=== PATIENT | male | born 1965 | race Two or more races ===

== ENCOUNTER 2017-09-18 10:15 | Emergency (ER) | payer OTHER ==
[~2017-09-18] VITALS: Ht 167.6 cm; Wt 81.6 kg
[~2017-09-18 10:15] MED LIST: AML5T PO; SIMV-13 PO
[2017-09-18] MEDS ORDERED: LIDOCAINE 1% HCL (LOCAL ANESTH.) INJ 20ML MDV IJ ONE (11:15)
[2017-09-18 11:37] VITALS: BP 128/80
== END 2017-09-18 12:25 | disposition home or self-care (01) ==
LOC: ER 10:15
DX: S01.01XA Laceration without foreign body of scalp, initial encounter (principal); E78.5 Hyperlipidemia, unspecified; I10 Essential (primary) hypertension; W22.8XXA Striking against or struck by other objects, initial encounter; Y93.89 Activity, other specified; Y99.8 Other external cause status; Y92.89 Other specified places as the place of occurrence of the external cause
CPT/HCPCS: 12001; 99283; J2001

== ENCOUNTER 2023-07-05 21:49 | Emergency (ER) | payer OTHER ==
[~2023-07-05] VITALS: Ht 167.6 cm; Wt 83.2 kg
[~2023-07-05 21:49] MED LIST changes: -SIMV-13 PO; +SIMV40TA18 PO
[2023-07-05] MEDS ORDERED: ONDANSETRON HCL 4 MG/2 ML VIAL ONE (22:22)
[2023-07-05] MEDS ORDERED: MORPHINE SULFATE 4 MG/ML SYR/VIAL ONE (22:22)
[2023-07-05] MEDS ORDERED: MORPHINE SULFATE 4 MG/ML SYR/VIAL IM ONE (22:30)
[2023-07-05] MEDS ORDERED: ONDANSETRON HCL 4 MG/2 ML VIAL IM ONE (22:30)
[2023-07-06] MEDS ORDERED: PROPOFOL 100 ML IV ONE (00:23)
[2023-07-06] MEDS ORDERED: PROPOFOL 10 MG/ML 20 ML IV ONE (00:30)
[2023-07-06] MEDS ORDERED: HYDROcodone-ACET 10/325MG TAB PO ONE (02:00)
[2023-07-06] MEDS ORDERED: HYDR-4798 PO (02:05)
[2023-07-06 02:30] VITALS: BP 118/72; PULSE 63; RESP 13; O2SAT 93
== END 2023-07-06 02:40 | disposition home or self-care (01) ==
LOC: ER 21:49
DX: S43.005A Unspecified dislocation of left shoulder joint, initial encounter (principal); E78.5 Hyperlipidemia, unspecified; I10 Essential (primary) hypertension; W03.XXXA Other fall on same level due to collision with another person, initial encounter; Y93.89 Activity, other specified; Y92.89 Other specified places as the place of occurrence of the external cause; Y99.8 Other external cause status
CPT/HCPCS: 23650; 73020; 73030; 73060; 96372; 99285; J2270; J2405; J2704

== ENCOUNTER 2024-07-29 09:01 | Emergency (ER) | payer OTHER ==
[~2024-07-29] VITALS: Ht 167.6 cm; Wt 82.0 kg
[~2024-07-29 09:01] MED LIST changes: +HYDR-4798 PO
--- NOTE | 2024-07-29 09:56 | ECG ---
[facility] Test Date: 2024-07-29 Test Time: 09:13:38 Pat Name: ROSNAA ROGEL Department: ER Room: Gender: M Routing Machine Operator: JOSELUIS : 1965 Requested By: EMERGENCY EMERGENCY Order Number: [id number] Reading MD: Measurements Intervals [place] Rate: 47 P: 42 UT: 58 QRS: -4 QRSD: 101 T: 55 QT: 432 QTc: 382 Interpretive Statements Sinus bradycardia Short UT interval Baseline wander in lead(s) V1 Please click the below link to view image of tracing.
[2024-07-29 09:57] VITALS: O2SAT 93
--- NOTE | 2024-07-29 11:33 | ED.PDOC ---
HPI (NEURO) HPI Comments 59-year-old male presents with a chief complaint of dizziness x onset Monday (07/26/2024) with associated nausea. Patient states that he has been feeling dizzy since Monday and that it has been progressively getting worse. Patient mentions that the dizziness feels like he is on a ship, rather than the room spinning. Patient mentions that he had a near syncopal episode this morning and fell backwards in the shower and hit his head. Patient denies any headache at this time, and just reports having some neck tension. Patient denies LOC and is A/Ox4 at this time. No other symptoms or modifying factors present at this time. Chief Complaint: Dizziness Time Seen by MD: 11:09 Primary Care Provider: WILLY RODRIGUEZ Reviewed Notes: Medications, Allergies Information Source: Patient Mode of Arrival: Ambulatory Severity: Moderate Dizziness/Weakness Severity: Unable to do activities Headache Severity: None Timing: Days Duration: Since onset Prehospital treatment: None Onset: With light exertion Circumstances: Spontaneous Symptoms: Imbalance Past Medical History PAST MEDICAL HISTORY: High Lipids, HTN Surgical History: Denies all surgeries Family History Family History: No family hx of DM, No family hx of HTN Social History Smoker: Non-Smoker Alcohol: Occasionally Drugs: Denies Drug Use Lives In: Home Constitutional: denies: chills, diaphoresis, fatigue, fever, malaise, sweats, weakness, others EENTM: denies: blurred vision, double vision, ear bleeding, ear discharge, ear drainage, ear pain, ear ringing, eye pain, eye redness, hearing loss, mouth pa in, mouth swelling, nasal discharge, nose bleeding, nose congestion, nose pain, photophobia, tearing, throat pain, throat swelling, voice changes, others Respiratory: denies: cough, hemoptysis, orthopnea, SOB at rest, shortness of breath, SOB with excertion, stridor, wheezing, others Cardiovascular: denies: chest pain, dizzy spells, diaphoresis, Dyspnea on exertion, edema, irregular heart beat, left arm pain, lightheadedness, palpitations, PND, syncope, others Gastrointestinal: reports: nausea; denies: abdomen distended, abdominal pain, blood streaked bowels, constipated, diarrhea, dysphagia, difficulty swallowing, hematemesis, melena, poor appetite, poor fluid intake, rectal bleeding, rectal pain, vomiting, others Genitourinary: denies: burning, dysuria, flank pain, frequency, hematuria, incontinence, penile discharge, penile sore, pain, testicle pain, testicle swelling, urgency, others Neurological: reports: dizziness; denies: fainting, headache, left sided numbness, left sided weakness, numbness, paresthesia, pre-existing deficit, right sided numbness, right sided weakness, seizure, speech problems, tingling, tremors, weakness, others Musculoskeletal: denies: back pain, gout, joint pain, joint swelling, muscle p ain, muscle stiffness, neck pain, others Integumetry: denies: bruises, change in color, change in hair/nails, dryness, laceration, lesions, lumps, rash, wounds, others Allergic/Immunocompromised: denies: Difficulty Healing, Frequent Infections, Hives, Itching, others Hematologic/Lymphatic: denies: anemia, blood clots, easy bleeding, easy bruising, swollen glands, others Endocrine: denies: excessive hunger, excessive sweating, excessive thirst, excessive urination, flushing, intolerance to cold, intolerance to heat, unexplained weight gain, unexplained weight loss, others Psychiatric: denies: anxiety, bipolar disorder, depression, hopeless, panic disorder, schizophrenia, sleepless, suicidal, others All Other Systems: Reviewed and Negative Physical Exam General Appearance: No Apparent Distress HEENT: PERRL/EOMI, Other (Occipital soft tissue tenderness. No bruising or crepitus.) Neck: Full Range of Motion, Normal Inspection, Tender Lateral (Right lateral and paraspinal neck tenderness.) Respiratory: Lungs Clear, No Accessory Muscle Use, No Respiratory Distress, Normal Breath Sounds Cardiovascular: Bradycardia, No Edema, No JVD Breast Exam: Deferred Gastrointestinal: Non Tender, Soft Genitalia: Deferred Pelvic: Deferred Rectal: Deferred Extremities: Normal inspection, Normal range of motion, Non-tender, No pedal edema Neurologic: Alert (Oriented x4), Normal Affect, Normal Mood, Other (Moves all extremities with adequate strength and tone. No gross focal deficit.) Cerebellar Function: NOT DONE Reflexes: NOT DONE Skin: Dry, Normal Color, Warm Lymphatic: NOT DONE EKG EKG : Comments Sinus bradycardia, rate 45, normal intervals, normal axis, normal QRS, no ST/T changes. Was a procedure done? Was a procedure done?: No Differential Diagnosis (SZ) Seizure: CVA/TIA CVA: Hypoglycemia General Weakness: Dehydration, Dysrhythmia, Electrolyte imbalance, Hypotension, Hypovolemia Headache: Closed Head Injury, Intracerebral Hemorrhage, Subarachnoid Hemorrhage, Subdural Hemorrhage, Other (Skull fracture, C-spine fracture, among others) X-Ray, Labs, Meds, VS Vital Signs Date Time Temp Pulse Resp B/P (MAP) Pulse Ox O2 Delivery O2 Flow Rate FiO2 07/29/24 17:04 97.9 66 15 137/86 (103) 93 97.9 07/29/24 16:39 61 07/29/24 16:20 51 15 132/82 (99) 96 07/29/24 15:35 49 18 122/74 (90) 96 07/29/24 15:31 45 135/75 50 125/83 55 137/86 07/29/24 14:00 50 16 136/79 (98) 96 07/29/24 13:38 45 07/29/24 12:15 51 20 115/65 (82) 92 07/29/24 12:00 46 07/29/24 10:56 44 20 144/79 (100) 96 07/29/24 09:57 93 Room Air* 0 21 07/29/24 09:52 98.7 49 18 167/84 (111) 96 98.7 07/29/24 09:13 47 07/29/24 09:05 97.8 47 18 187/101 (129) 96 170/78 (108) Lab Test 07/29/24 13:51 07/29/24 12:51 07/29/24 12:28 07/29/24 09:56 Range/Units Troponin I High Sensitivity 14 15 </=54 ng/L White Blood Count 8.7 4.4-10.8 10^3/uL Red Blood Count 4.60 4.5-5.90 10^6/uL Hemoglobin 14.5 13.5-17.5 g/dL Hematocrit 43.6 41.0-53.0 % Mean Corpuscular Volume 94.7 80.0-100.0 fL Mean Corpuscular Hemoglobin 31.5 28.0-32.0 pg Mean Corpuscular Hemoglobin Concent 33.3 32.0-36.0 g/dL Red Cell Distribution Width 13.1 11.8-14.3 % Platelet Count 268 140-450 10^3/uL Mean Platelet Volume 7.7 6.9-10.8 fL Neutrophils (%) (Auto) 72.3 37.0-80.0 % Lymphocytes (%) (Auto) 19.6 10.0-50.0 % Monocytes (%) (Auto) 7.2 0.0-12.0 % Eosinophils (%) (Auto) 0.6 0.0-7.0 % Basophils (%) (Auto) 0.3 0.0-2.0 % Neutrophils # (Auto) 6.3 1.6-8.6 10 ^3/uL Lymphocytes # (Auto) 1.7 0.4-5.4 10 ^3/uL Monocytes # (Auto) 0.6 0-1.3 10 ^3/uL Eosinophils # (Auto) 0.1 0-0.8 10 ^3/uL Basophils # (Auto) 0 0-0.2 10 ^3/uL Nucleated Red Blood Cells 0.0 % Sodium Level 140 136-145 mmol/L Potassium Level 3.8 3.5-5.1 mmol/L Chloride Level 105 98-107 mmol/L Carbon Dioxide Level 28 20-31 mmol/L Anion Gap 7 5-15 Blood Urea Nitrogen 10 9-23 mg/dL Creatinine 0.91 0.700-1.30 mg/dL Glomerular Filtration Rate Calc 96 >90 mL/min BUN/Creatinine Ratio 11.0 10.0-20.0 Serum Glucose 105 74-106 mg/dL Calcium Level 10.3 8.7-10.4 mg/dL B-Type Natriuretic Peptide 23.14 0-100 pg/mL Thyroid Stimulating Hormone (TSH) 1.12 0.55-4.78 uIU/mL Urine Color Colorless Yellow Urine Clarity Clear Clear Urine pH 6.0 5.0-9.0 Urine Specific [place] 1.006 1.001-1.035 Urine Protein Negative Negative Urine Ketones Negative Negative Urine Blood Negative Negative /uL Urine Nitrite Negative Negative Urine Bilirubin Negative Negative Urine Urobilinogen Normal Negative mg/dL Urine Leukocyte Esterase Negative Negative /uL Urine RBC None seen 0 - 3 /hpf Urine WBC <1 0 - 3 /hpf Urine Squamous Epithelial Cells None seen <5 /hpf Urine Bacteria None seen None Seen /hpf Urine Glucose Normal Normal mg/dL POC Glucose 138 H 70-106 mg/dl Test 07/29/24 09:13 Range/Units POC Glucose 117 H 70-106 mg/dl Current Medications Medications (Trade) Dose Ordered Sig/Kirstin Route Start Time Stop Time Status Last Admin Sodium Chloride 1,000 ml @ 1,000 mls/hr Q1H ONCE IV 07/29/24 12:00 07/29/24 12:59 DC 07/29/24 12:25 Ondansetron HCl (Zofran) 4 mg ONCE ONCE IV 07/29/24 12:00 07/29/24 12:01 DC 07/29/24 12:22 Meclizine HCl (Antivert Tablet) 50 mg ONCE ONCE PO 07/29/24 12:00 07/29/24 12:01 DC 07/29/24 12:24 Acetaminophen/ Hydrocodone Bitart ([place] 5/325MG Tab) 1 tab ONCE ONCE PO 07/29/24 12:00 07/29/24 12:01 DC 07/29/24 12:20 Meclizine HCl (Antivert Tablet) 25 mg ONCE ONCE PO 07/29/24 16:45 07/29/24 16:50 DC 07/29/24 16:57 PROCEDURE(s): HWOCT - HEAD WITHOUT CONTRAST REASON: dizzy, head injury ORDER NUMBER(s): [id number], ACCESSION NUMBER(s): [id number] EXAM: CT HEAD WITHOUT CONTRAST HISTORY: dizzy, head injury COMPARISON: None TECHNIQUE: Axial images of the head were obtained and reformatted in coronal and sagittal planes. All CT scans at this medical facility are performed using dose modulation techniques as appropriate to a performed exam including the following: Automated exposure control was utilized; adjustment of the MA and/or KV according to p atient size; and use of iterative reconstruction technique. CT Dose: CTDI volume is 63 mGy. Dose-length product is 1125 mGy*cm FINDINGS: There is no evidence of acute intracranial hemorrhage, mass, mass effect midline shift. There is no hydrocephalus or extra-axial fluid collection. Kaur-white matter differentiation is maintained. The visualized paranasal sinuses and mastoid air cells are clear. The calvarium is intact. IMPRESSION: 1. No acute intracranial process. HS:Y EDURE(s): CS2 - CERVICAL WITHOUT CONTRAST REASON: dizzy, fall with head inj, R neck pain ORDER NUMBER(s): [id number], ACCESSION NUMBER(s): [id number] EXAM: CT CERVICAL WITHOUT CONTRAST INDICATION: dizzy, fall with head inj, R neck pain EXAM DATE: 07/29/2024 12:23 PM COMPARISON: None TECHNIQUE: Multiple axial CT images of the cervical spine were obtained using bone algorithm. Sagittal and coronal reformatting was done. Bone and soft tissue windows were reviewed. Radiation Dose Information: CT Dose: CTDI volume is 26.5 mGy. Dose-length product is 714.7 mGy*cm FINDINGS: The cervical alignment is intact. Reversal of the cervical lordosis. No acute cervical spine fracture is identified. The vertebral body heights are intact. No suspicious osseous lesions are identified. Multilevel intervertebral disc space narrowing. No significant spinal stenosis. Multilevel neural foraminal stenosis, left slightly greater than right. There is no prevertebral soft tissue swelling. Lung apices are clear. IMPRESSION: 1. No evidence of acute cervical spine fracture or traumatic malalignment. HS:Y All CT scans at this medical facility are performed using dose modulation techniques as appropriate to a performed exam including the following: Automated exposure control was utilized; adjustment of the MA and/or KV according to patient size; and use of iterative reconstruction technique. X-Ray, Labs, Meds, VS Comment 58-year-old male with a history of hypertension and dyslipidemia complaining of dizziness and head injury/neck pain due to near syncope and fall Vitals remarkable for heart rate 44 Exam remarkable for occipital soft tissue tenderness, right-sided neck tenderness, and bradycardia Rhythm strip independently interpreted by me: Sinus rhythm, rate 45, no ectopy. Head CT unremarkable CT C-spine unremarkable CBC, CMP, UA, BNP and troponin unremarkable for any abnormality of acute significance Patient treated with the following in the ED: 1 L 0.9 normal saline IV bolus, Zofran 4 mg IV, [place] 5/325 mg p.o., meclizine 50 mg p.o. On re-evaluation, patient states his headache has improved, neck pain has improved, and he is not feeling dizzy as long as he is lying down in the bed. Patient's symptoms may be due to symptomatic bradycardia. Plan is to admit the patient for Cardiology evaluation. Case discussed with Dr. Ash who will see the pt in ED. Patient was discharged by Dr. Ash. Time of 1ST Reevaluation: 11:45 Reevaluation 1ST: Unchanged Time of 2ND Reevaluation: 14:03 Reevaluation 2ND: Improved Patient Education/Counseling: Diagnosis, Treatment, Prognosis Family Education/Counseling: Diagnosis, Treatment, Prognosis Departure 1 Departure Time of Disposition: 14:03 Impression: Primary Impression: Symptomatic bradycardia Disposition: 01 HOME / SELF CARE / HOMELESS Condition: Stable e-Prescriptions Meclizine Hcl (Meclizine Hcl) 12.5 Mg Tab 1 TAB PO TID, #12 TAB 0 Refills Prov: KULDIP ASH DO 07/29/24 Discharged With: Relative Critical Care Note Critical Care Time?: No Stability Stability form required: No I personally scribed for SENIA KHAN MD ([email or web address]) on 07/29/24 at 11:33. Electronically submitted by Evan Cole [email or web address]). SENIA KHAN MD Jul 29, 2024 11:33
[2024-07-29] MEDS: HYDROcodone-ACET 5/325MG TAB PO ONE (12:20)
[2024-07-29] MEDS: ONDANSETRON HCL 4 MG/2 ML VIAL IV ONE (12:22)
[2024-07-29] MEDS: MECLIZINE HCL 25 MG TAB PO ONE ×2 (12:24→16:57)
[2024-07-29] MEDS: SODIUM CHLORIDE 0.9% 1,000 ML IV ONE (12:25)
[2024-07-29 12:44] LABS: Urine Bacteria None Seen /hpf (None Seen)
--- NOTE | 2024-07-29 12:54 | DVH ---
EXAM: CT HEAD WITHOUT CONTRAST HISTORY: dizzy, head injury COMPARISON: None TECHNIQUE: Axial images of the head were obtained and reformatted in coronal and sagittal planes. All CT scans at this medical facility are performed using dose modulation techniques as appropriate t o a performed exam including the following: Automated exposure control was utilized; adjustment of th e MA and/or KV according to patient size; and use of iterative reconstruction technique. CT Dose: CTDI volume is 63 mGy. Dose-length product is 1125 mGy*cm FINDINGS: There is no evidence of acute intracranial hemorrhage, mass, mass effect midline shift. There is no h ydrocephalus or extra-axial fluid collection. Kaur-white matter differentiation is maintained. The visualized paranasal sinuses and mastoid air cells are clear. The calvarium is intact. IMPRESSION: 1. No acute intracranial process. HS:Y
[2024-07-29 12:58] LABS: Urine Blood Negative /uL (Negative); Urine Clarity Clear (Clear); Urine Color Colorless (Yellow); Urine Protein, UAD Negative (Negative); Urine Specific Gravity 1.006 (1.001-1.035); Urine Squamous Epithelial Cell None Seen /hpf (<5); Urine Urobilinogen Normal (Negative); Urine WBC <1 /hpf (0 - 3)
--- NOTE | 2024-07-29 13:03 | DVH ---
EXAM: CT CERVICAL WITHOUT CONTRAST INDICATION: dizzy, fall with head inj, R neck pain EXAM DATE: 07/29/2024 12:23 PM COMPARISON: None TECHNIQUE: Multiple axial CT images of the cervical spine were obtained using bone algorithm. Sagitta l and coronal reformatting was done. Bone and soft tissue windows were reviewed. Radiation Dose Information: CT Dose: CTDI volume is 26.5 mGy. Dose-length product is 714.7 mGy*cm FINDINGS: The cervical alignment is intact. Reversal of the cervical lordosis. No acute cervical spine fracture is identified. The vertebral body heights are intact. No suspicious osseous lesions are identified. Multilevel intervertebral disc space narrowing. No significant spinal stenosis. Multilevel neural fo raminal stenosis, left slightly greater than right. There is no prevertebral soft tissue swelling. Lung apices are clear. IMPRESSION: 1. No evidence of acute cervical spine fracture or traumatic malalignment. HS:Y All CT scans at this medical facility are performed using dose modulation techniques as appropriate t o a performed exam including the following: Automated exposure control was utilized; adjustment of th e MA and/or KV according to patient size; and use of iterative reconstruction technique.
[2024-07-29 13:17] LABS: Basophils # (auto) 0 10 ^3/uL (0-0.2); Basophils % (auto) 0.3 % (0.0-2.0); Eosinophils # (auto) 0.1 10 ^3/uL (0-0.8); Eosinophils % (auto) 0.6 % (0.0-7.0); Hematocrit 43.6 % (41.0-53.0); Hemoglobin 14.5 g/dL (13.5-17.5); Lymphocytes # (auto) 1.7 10 ^3/uL (0.4-5.4); Lymphocytes % (auto) 19.6 % (10.0-50.0); Mean Corpuscular Hemoglobin 31.5 pg (28.0-32.0); Mean Corpuscular Hgb Conc. 33.3 g/dL (32.0-36.0); Mean Corpuscular Volume 94.7 fL (80.0-100.0); Monocytes # (auto) 0.6 10 ^3/uL (0-1.3); Monocytes % (auto) 7.2 % (0.0-12.0); Neutrophils # (auto) 6.3 10 ^3/uL (1.6-8.6); Neutrophils % (auto) 72.3 % (37.0-80.0); Platelet Count (auto) 268 10^3/uL (140-450); Red Cell Distribution Width 13.1 % (11.8-14.3); White Blood Cell 8.7 10^3/uL (4.4-10.8)
[2024-07-29 13:35] LABS: Chloride 105 mmol/L (98-107); Potassium 3.8 mmol/L (3.5-5.1); Sodium 140 mmol/L (136-145)
[2024-07-29 13:36] LABS: Anion Gap 7 (5-15); Carbon Dioxide 28 mmol/L (20-31)
[2024-07-29 13:37] LABS: Calcium 10.3 mg/dL (8.7-10.4)
--- NOTE | 2024-07-29 13:40 | ECG ---
[facility] Test Date: 2024-07-29 Test Time: 13:38:38 Pat Name: ROSANA ROGEL Department: ER Room: Gender: M Gardener: ER : 1965 Requested By: SENIA KEENE Order Number: [id number] Reading MD: Measurements Intervals [place] Rate: 45 P: 43 RI: 184 QRS: 21 QRSD: 93 T: 35 QT: 459 QTc: 398 Interpretive Statements Sinus bradycardia Please click the below link to view image of tracing.
[2024-07-29 13:41] LABS: Glucose 105 mg/dL (74-106)
[2024-07-29 13:42] LABS: Blood Urea Nitrogen 10 mg/dL (9-23)
[2024-07-29] MEDS ORDERED: MECL12.586 PO (16:41)
--- NOTE | 2024-07-29 16:51 | DVHDS2 ---
Discharge Summary Date of Admission Date of Discharge: Jul 29, 2024 Labs/Diagnostic Data: Laboratory Results Test 07/29/24 13:51 07/29/24 12:51 07/29/24 12:28 07/29/24 09:56 Troponin I High Sensitivity 14 ng/L (</=54) White Blood Count 8.7 10^3/uL (4.4-10.8) Red Blood Count 4.60 10^6/uL (4.5-5.90) Hemoglobin 14.5 g/dL (13.5-17.5) Hematocrit 43.6 % (41.0-53.0) Mean Corpuscular Volume 94.7 fL (80.0-100.0) Mean Corpuscular Hemoglobin 31.5 pg (28.0-32.0) Mean Corpuscular Hemoglobin Concent 33.3 g/dL (32.0-36.0) Red Cell Distribution Width 13.1 % (11.8-14.3) Platelet Count 268 10^3/uL (140-450) Mean Platelet Volume 7.7 fL (6.9-10.8) Neutrophils (%) (Auto) 72.3 % (37.0-80.0) Lymphocytes (%) (Auto) 19.6 % (10.0-50.0) Monocytes (%) (Auto) 7.2 % (0.0-12.0) Eosinophils (%) (Auto) 0.6 % (0.0-7.0) Basophils (%) (Auto) 0.3 % (0.0-2.0) Neutrophils # (Auto) 6.3 10 ^3/uL (1.6-8.6) Lymphocytes # (Auto) 1.7 10 ^3/uL (0.4-5.4) Monocytes # (Auto) 0.6 10 ^3/uL (0-1.3) Eosinophils # (Auto) 0.1 10 ^3/uL (0-0.8) Basophils # (Auto) 0 10 ^3/uL (0-0.2) Nucleated Red Blood Cells 0.0 % Sodium Level 140 mmol/L (136-145) Potassium Level 3.8 mmol/L (3.5-5.1) Chloride Level 105 mmol/L (98-107) Carbon Dioxide Level 28 mmol/L (20-31) Anion Gap 7 (5-15) Blood Urea Nitrogen 10 mg/dL (9-23) Creatinine 0.91 mg/dL (0.700-1.30) Glomerular Filtration Rate Calc 96 mL/min (>90) BUN/Creatinine Ratio 11.0 (10.0-20.0) Serum Glucose 105 mg/dL (74-106) Calcium Level 10.3 mg/dL (8.7-10.4) B-Type Natriuretic Peptide 23.14 pg/mL (0-100) Thyroid Stimulating Hormone (TSH) 1.12 uIU/mL (0.55-4.78) Urine Color Colorless (Yellow) Urine Clarity Clear (Clear) Urine pH 6.0 (5.0-9.0) Urine Specific [place] 1.006 (1.001-1.035) Urine Protein Negative (Negative) Urine Ketones Negative (Negative) Urine Blood Negative /uL (Negative) Urine Nitrite Negative (Negative) Urine Bilirubin Negative (Negative) Urine Urobilinogen Normal mg/dL (Negative) Urine Leukocyte Esterase Negative /uL (Negative) Urine RBC None seen /hpf (0 - 3) Urine WBC <1 /hpf (0 - 3) Urine Squamous Epithelial Cells None seen /hpf (<5) Urine Bacteria None seen /hpf (None Seen) Urine Glucose Normal mg/dL (Normal) POC Glucose 138 mg/dl (70-106) Other Laboratory Tests 07/29/24 12:51 Brief Hx & Hospital Course: Patient is a 59-year-old male with past medical history of hypertension, BPH who presents with complaints of dizziness for the past three days. Patient notes his dizziness is worse when ambulating and resolves when sitting. Patient notes that he was in the shower earlier today when he closes eyes and as he was applying shampoo felt imbalanced. He denies syncope rising or losing consciousness. Patient presented to the ER for further evaluation. On arrival, patient's vitals were notable for pulse in the mid 40s to low 50s. Systolic blood pressure was between 140s to 180s. EKG was done which showed sinus bradycardia. CBC was done which was within normal limits. BMP was done which was within normal limits. Troponin was not elevated x2. BNP was within normal limits. TSH was 1.12, within normal limits. CT brain without contrast was done which was negative for any acute intracranial abnormalities. CT of the cervical spine was done due to complaints of right neck pain. Overall this was negative for any vertebral abnormalities. Patient denies any cardiac history. Neurologic examination was notable for horizontal nystagmus. No vertical nystagmus was noted. Patient was able to stand up without any severe recurrence of dizziness. Orthostatics were negative. This was after he received meclizine 50 mg p.o. Patient also received 1 L NS bolus and [place] 5/325 for pain. Patient was monitored for several hours. He noted improvement in symptoms. Patient was prescribed meclizine 12.5 mg t.i.d. for four days. Patient was given time from work. He was advised to refrain from driving and operating any machinery while symptoms persist. Patient was given ER return precautions. Patient is to be referred to Cardiology on outpatient basis for further evaluation of bradycardia. Patient was started in stable condition. [facility] case management to arrange follow-up appointments. Condition at Discharge: Good Final Diagnosis/Problems List Benign Paroxysmal Vertigo Secondary Diagnosis: Hypertension Sinus Bradycardia Discharge Disposition: Home Discharge Instruct/Medications Diet: Cardiac 2g Na,low cholest Activity: Light activity Follow Up/Referral: Follow up with cardiology for bradycardia. Medications: Meclizine 12.5mg three times a day as needed. Medication may make you drowsy. Refrain from driving and operating machinery. Discharge Statement: "Patient was advised to return to the ER or call 911 if any headaches, dizziness, shortness of breath, chest pain, abdominal pain, bleeding, fevers, or worsening of medical condition. Patient was counseled about treatment plan, medications, possible side effects, patientverbalized understanding. All questions were answered to the best of my ability. This discharge took greater then 30 minutes in planning, reviewing documentation, counseling the patient, and discussing with other team members." ASSESSMENT ASSESSMENT Assessment Benign Paroxysmal Vertigo KULDIP ASH DO Jul 29, 2024 16:51
[2024-07-29 17:04] VITALS: BP 137/86; PULSE 66; RESP 15; TEMP 97.9; O2SAT 93
== END 2024-07-29 17:24 | disposition home or self-care (01) ==
LOC: ER 09:01
DX: R00.1 Bradycardia, unspecified (principal); I10 Essential (primary) hypertension; E78.5 Hyperlipidemia, unspecified
CPT/HCPCS: 36415; 70450; 72125; 80048; 81001; 82962; 83880; 84443; 84484; 85025; 93005; 96361; 96374; 99285; J2405; J7030; J8597